=== PATIENT | female | born 1990 | race Caucasian/White ===

== ENCOUNTER 2018-04-02 13:55 | Inpatient (IN) | payer MEDICAID ==
[2018-04-02] MEDS ORDERED: CEFAZOLIN 2 GM/50 ML (PMX) 50 ML IVPB (15:30)
[2018-04-02] MEDS ORDERED: CARBOPROST 250 MCG INJ IM ×2 (15:30→23:00)
[2018-04-02] MEDS ORDERED: METHYLERGONOVINE 0.2 MG INJ IM ×2 (15:30→23:00)
[2018-04-02] MEDS ORDERED: MISOPROSTOL 200 MCG TAB PR ×2 (15:30→23:00)
[2018-04-02] MEDS ORDERED: OXYTOCIN 30 UNITS/LR 500 ML IV ×2 (15:30→23:00)
[2018-04-02] MEDS: LACTATED RINGER'S 1,000 ML IV (15:38)
[2018-04-02 15:47] LABS: ADD MAN DIFF? NO
[2018-04-02 15:55] LABS: WHITE BLOOD COUNT 6.3 10^3/ul (4.8-10.8)
[2018-04-02 15:55] LABS: BASOPHILS % 0.3 % (0.0-2.0); EOSINOPHILS % 0.2 % (0.0-7.0); HEMATOCRIT 28.7 % (37.0-47.0); LYMPHOCYTES # 1.3 10^3/ul (0.8-2.9); LYMPHOCYTES % 20.5 % (15.0-51.0); MEAN CORPUSCULAR HEMOGLOBIN 26.5 pg (29.0-33.0); MEAN CORPUSCULAR HGB CONC 31.4 g/dl (32.0-37.0); MEAN CORPUSCULAR VOLUME 84.7 fl (82.0-101.0); MEAN PLATELET VOLUME 11.1 fl (7.4-10.4); MONOCYTE # 0.5 10^3/ul (0.3-0.9); MONOCYTES % 7.2 % (0.0-11.0); NEUTROPHIL # 4.5 10^3/ul (1.6-7.5); NEUTROPHILS % 71.2 % (39.0-77.0); PLATELET COUNT 289 10^3/UL (140-415); RED BLOOD COUNT 3.39 10^6/ul (4.20-5.40); RED CELL DISTRIBUTION WIDTH 13.2 % (11.5-14.5)
[2018-04-02 16:10] LABS: INR 0.93; PROTIME 12.6 Sec (11.9-14.9)
[2018-04-02 16:11] LABS: PARTIAL THROMBOPLASTIN TIME 29.6 Sec (23.0-35.0)
[2018-04-02] MEDS: CITRIC ACID/NA CITRATE 30 ML CUP PO (16:30)
[2018-04-02] MEDS ORDERED: morphine SULFATE/PF (10 MG/10 ML) INJ (16:46)
[2018-04-02 17:23] LABS: ADD UMIC YES; UR ASCORBIC ACID NEGATIVE (NEGATIVE); UR BACTERIA FEW /HPF (NONE SEEN); UR BILIRUBIN (Dip) NEGATIVE (NEGATIVE); UR BLOOD (Dip) NEGATIVE (NEGATIVE); UR CLARITY SLIGHTLY CLOUDY (CLEAR); UR COLOR AMBER (YELLOW); UR GLUCOSE (Dip) NEGATIVE (NEGATIVE); UR KETONES (Dip) TRACE mg/dL (NEGATIVE); UR LEUKOCYTE ESTERASE (Dip) TRACE Leu/ul (NEGATIVE); UR MUCUS FEW /HPF (NONE SEEN); UR NITRITE (Dip) NEGATIVE (NEGATIVE); UR RBC 0 /HPF (0-5); UR SPECIFIC GRAVITY (Dip) 1.013 (1.003-1.030); UR SQUAMOUS EPITHELIAL CELL MODERATE /HPF (FEW); UR TOTAL PROTEIN (Dip) NEGATIVE (NEGATIVE); UR UROBILINOGEN (Dip) NEGATIVE (NEGATIVE); UR WBC 57 /HPF (0-5)
[2018-04-02] MEDS ORDERED: DEXAMETHASONE 4 MG/ML 1 ML INJ (17:26)
[2018-04-02] MEDS ORDERED: ONDANSETRON 4 MG INJ (17:26)
[2018-04-02] MEDS ORDERED: PHENYLephrine (100 MCG/ML) 5ML SYG (17:34)
[2018-04-02] MEDS ORDERED: NALOXONE (0.4 MG/ML) INJ IV (18:00)
[2018-04-02] MEDS ORDERED: HYDROmorphONE 0.5 MG/0.5 ML SYG IV ×2 (18:00)
[2018-04-02] MEDS ORDERED: ONDANSETRON 4 MG INJ IV (18:00)
[2018-04-02] MEDS ORDERED: KETOROLAC 30 MG INJ IV (18:00)
[2018-04-02] MEDS ORDERED: ZOLPIDEM 5 MG TAB PO (18:00)
[2018-04-02] MEDS ORDERED: DIPHENHYDRAMINE 50 MG INJ IV (18:00)
[2018-04-02] MEDS: OXYTOCIN 30 UNITS/LR 500 ML IV ×2 (19:45→23:32)
[2018-04-02 20:54] LABS: RAPID PLASMA REAGIN NONREACTIVE (NR)
[2018-04-02] MEDS: AZITHROMYCIN 500MG/NS (PMX) 250 ML IVPB (21:45)
[2018-04-02] MEDS ORDERED: NA PHOSPHATE/BIPHOS 133 ML ENEMA PR (23:00)
[2018-04-02] MEDS ORDERED: HYDROCODONE/APAP (5/325) TAB PO (23:00)
[2018-04-02] MEDS ORDERED: OXYCODONE/ACETAMINOPHEN (5/325) TAB PO (23:00)
[2018-04-02] MEDS: CLINDAMYCIN 300 MG CAP PO (23:34)
[2018-04-02] MEDS: LANOLIN 7 GM TUBE TOP (23:34)
[2018-04-02] MEDS: CEFAZOLIN 2 GM/50 ML (PMX) 50 ML IVPB (23:34)
[2018-04-03] MEDS: LACTATED RINGER'S 1,000 ML IV ×3 (03:58→20:56)
[2018-04-03] MEDS: CLINDAMYCIN 300 MG CAP PO ×3 (05:53→17:28)
[2018-04-03] MEDS: IBUPROFEN 800 MG TAB PO ×3 (06:00→21:40)
[2018-04-03] MEDS: CEFAZOLIN 2 GM/50 ML (PMX) 50 ML IVPB ×2 (06:38→14:39)
[2018-04-03 08:05] LABS: ADD MAN DIFF? NO
[2018-04-03 08:13] LABS: BASOPHILS % 0.1 % (0.0-2.0); HEMATOCRIT 26.9 % (37.0-47.0); HEMOGLOBIN 8.6 g/dl (12.0-16.0); LYMPHOCYTES # 1.3 10^3/ul (0.8-2.9); LYMPHOCYTES % 11.8 % (15.0-51.0); MEAN CORPUSCULAR HEMOGLOBIN 26.9 pg (29.0-33.0); MEAN CORPUSCULAR VOLUME 84.1 fl (82.0-101.0); MEAN PLATELET VOLUME 11.3 fl (7.4-10.4); MONOCYTE # 0.7 10^3/ul (0.3-0.9); MONOCYTES % 6.4 % (0.0-11.0); NEUTROPHIL # 9.1 10^3/ul (1.6-7.5); PLATELET COUNT 274 10^3/UL (140-415); RED CELL DISTRIBUTION WIDTH 13.1 % (11.5-14.5)
[2018-04-03 08:13] LABS: WHITE BLOOD COUNT 11.2 10^3/ul (4.8-10.8)
[2018-04-03] MEDS: SENNA/DOCUSATE NA (8.6MG/50MG) TAB PO (10:32)
[2018-04-03] MEDS: BISACODYL 10 MG SUPP PR (12:19)
[2018-04-04] MEDS: CLINDAMYCIN 300 MG CAP PO ×5 (00:07→23:59)
[2018-04-04] MEDS: LACTATED RINGER'S 1,000 ML IV ×2 (05:30→13:30)
[2018-04-04] MEDS: IBUPROFEN 800 MG TAB PO ×3 (05:48→22:06)
[2018-04-05] MEDS: CLINDAMYCIN 300 MG CAP PO ×2 (05:42→12:09)
[2018-04-05] MEDS: IBUPROFEN 800 MG TAB PO (05:43)
[2018-04-05] MEDS: MEASLES,MUMPS,RUBELLA VACCINE INJ SC* (09:00)
[2018-04-05] MEDS: DIPHTH/TET/ACEL PERTUSS (ADULT) 0.5 ML VIAL IM* (09:00)
== END 2018-04-05 14:00 | disposition home or self-care (01) | DRG 788 ==
LOC: L-D 13:55 → PP1 21:27
PROVIDERS: Obstetrics & Gynecology
PROC: 10D00Z1 Extraction of Products of Conception, Low, Open Approach (ICD-10-PCS; principal; 2018-04-02 15:30)
DX: O34.219 Maternal care for unspecified type scar from previous cesarean delivery (principal); Z3A.39 39 weeks gestation of pregnancy; Z37.0 Single live birth
CPT/HCPCS: 81001; 85025; 85610; 85730; 86592; 86850; 86900; 86901; 90715; 99464